=== PATIENT | male | born 1970 | race Caucasian/White ===

== ENCOUNTER → 2016-12-23 | Outpatient (CLI) | payer MEDICARE, BC | END | disposition home or self-care (01) | LOC: LABWHC1 14:13 | PROVIDERS: ATTEND Urology | DX: E29.1 Testicular hypofunction (principal) | CPT/HCPCS: 36415; 84402; 84403 ==

== ENCOUNTER → 2017-04-01 | Outpatient (CLI) | payer MEDICARE, BC ==
[2017-04-01 14:46] LABS: CH 34.3; CHCM 36.5; HCT 47.2 % (39.0-53.0); HDW 2.82; HGB 17.1 gm/dL (13.0-17.5); MCH 34.1 pg (25.0-35.0); MCHC 36.2 g/dL (31.0-37.0); MCV 94.4 fL (80.0-100.0); Mean Platelet Volume 8.9; RDW 12.2 % (11.5-15.5); WBC 7.9 k/uL (3.8-10.6)
== END | disposition home or self-care (01) ==
LOC: LABWHC1 14:20
PROVIDERS: ATTEND Psychiatry & Neurology Psychiatry
DX: E03.9 Hypothyroidism, unspecified (principal)
CPT/HCPCS: 36415; 84439; 84443; 84460; 84481; 85027

== ENCOUNTER → 2017-06-07 | Outpatient (CLI) | payer MEDICARE, BC | END | disposition home or self-care (01) | LOC: LABWHC1 15:57 | PROVIDERS: ATTEND Urology | DX: E29.1 Testicular hypofunction (principal) | CPT/HCPCS: 36415; 84402; 84403 ==

== ENCOUNTER → 2017-06-29 | Outpatient (CLI) | payer MEDICARE, BC ==
--- NOTE | 2017-06-29 15:15 | PN ---
PROGRESS NOTE Aubrey is 47, diagnosed having severe LUCY with an AHI of 63, worse in a supine body position. He has also COPD, moderate to severe with an AHI of 64% of predicted. Other comorbid conditions include hypothyroidism, ADD and chronic back pain. The patient underwent a CPAP titration during which he was titrated to a CPAP pressure of 15 cm of water. I am seeing this patient in a followup. He is not fully compliant with CPAP therapy over the past 1 week. He has tried to use it; however, he is reporting difficulty with anxiety and difficulties in exhalation. He is using an AirFit F20 touch full-face mask. It seems that the patient has been having difficulties with exhalation and this probably is related to his underlying COPD. Note that he had did very well during the CPAP titration that was done here in the [facility]. He is requesting his pressure to be lowered. He is also requesting an alternative mask to be offered to him today. BP is 121/76, pulse 64, respirations 16, temperature 98.0, weight is 305, saturation 95% on room air. GENERAL APPEARANCE: Calm, comfortable. HEENT: Short neck, crowding posterior pharynx. There is no goiter or neck mass. LUNGS: Diminished breath sounds; otherwise clear. Heart sounds are regular rate and rhythm. Normal S1, S2. No S3, S4. No murmurs. Abdomen is soft, nontender. EXTREMITIES: No edema. No cyanosis or clubbing. IMPRESSION: 1. Severe symptomatic obstructive sleep apnea, apnea-hypopnea index of 63, worse in a supine body position, having difficulty in tolerating CPAP either due to high pressures or increased anxiety or a combination of both. 2. Chronic obstructive pulmonary disease, FEV1 of 64% of predicted. 3. Obesity. 4. Hypothyroidism. 5. Attention deficit disorder. 6. Chronic back pain. PLAN: 1. Change this patient to an automatic CPAP mode. I adjusted the CPAP pressures to include a minimum pressure of 4 and maximum pressure of 10 in an auto mode. 2. Will try to continue using AirFit F20 touch full-face mask. If this fails, the patient will be switched Dreamwear nose pillow. A prescription for the second mask was given to him. 3. The patient will be seen in a brief followup in 2 weeks' time to make any further adjustments if needed. He may need to wear, even when he is awake to get more accustomed to the treatment and as he becomes more comfortable, the pressure may be modified. I am seeing him back in 2 weeks' time in followup. Encourage weight loss. Implement good sleep hygiene measures. Will follow. LISSY / ERIN: [id number] /
== END ==
LOC: SLEEP 13:04
PROVIDERS: ATTEND Internal Medicine Critical Care Medicine
DX: G47.33 Obstructive sleep apnea (adult) (pediatric) (principal); J44.9 Chronic obstructive pulmonary disease, unspecified; E03.9 Hypothyroidism, unspecified; E66.9 Obesity, unspecified; F98.8 Other specified behavioral and emotional disorders with onset usually occurring in childhood and adolescence; M54.9 Dorsalgia, unspecified; G89.29 Other chronic pain

== ENCOUNTER → 2017-08-03 | Outpatient (CLI) | payer MEDICARE, BC ==
--- NOTE | 2017-08-03 16:52 | XR ---
EXAMINATION TYPE: XR chest 2V DATE OF EXAM: 08/03/2017 COMPARISON: 08/19/2015 HISTORY: 47-year-old male COPD TECHNIQUE: Frontal and lateral views FINDINGS: Heart is upper limits of normal in size. Aorta and pulmonary vasculature within normal limits. No con solidation or pleural effusion. IMPRESSION: No acute cardiopulmonary process.
== END ==
LOC: RADXRMAIN 15:37
PROVIDERS: ATTEND Psychiatry & Neurology Psychiatry
DX: J44.9 Chronic obstructive pulmonary disease, unspecified (principal); I50.9 Heart failure, unspecified
CPT/HCPCS: 71020

== ENCOUNTER → 2017-08-09 | Outpatient (CLI) | payer MEDICARE, BC ==
[2017-08-09 16:37] LABS: CH 33.8; CHCM 34.7; HCT 47.7 % (39.0-53.0); HDW 2.66; HGB 16.3 gm/dL (13.0-17.5); MCH 33.5 pg (25.0-35.0); MCHC 34.2 g/dL (31.0-37.0); Mean Platelet Volume 9.5; RBC 4.87 m/uL (4.30-5.90); RDW 14.1 % (11.5-15.5); WBC 9.1 k/uL (3.8-10.6)
[2017-08-09 16:51] LABS: Bilirubin, Delta 0.2 mg/dL (0.0-0.2); Total Protein 7.8 g/dL (6.3-8.2)
[2017-08-09 17:22] LABS: Prostate Specific Antigen 0.36 ng/mL (0.00-4.00)
== END | disposition home or self-care (01) ==
LOC: LABWHC1 15:44
PROVIDERS: ATTEND Urology
DX: E66.9 Obesity, unspecified (principal); R35.1 Nocturia; E29.1 Testicular hypofunction
CPT/HCPCS: 36415; 80061; 80076; 80175; 84153; 84402; 84403; 85027

== ENCOUNTER → 2017-11-26 | Outpatient (CLI) | payer MEDICARE, BC | END | disposition home or self-care (01) | LOC: LABWHC1 14:29 | PROVIDERS: ATTEND Dermatology Dermatopathology | DX: L40.0 Psoriasis vulgaris (principal); Z11.1 Encounter for screening for respiratory tuberculosis; Z79.899 Other long term (current) drug therapy | CPT/HCPCS: 36415; 86480 ==

== ENCOUNTER → 2018-01-11 | Outpatient (CLI) | payer MEDICARE, BC ==
[2018-01-11 16:14] LABS: HCT 46.8 % (39.0-53.0); HGB 16.2 gm/dL (13.0-17.5); MCH 32.4 pg (25.0-35.0); MCHC 34.6 g/dL (31.0-37.0); MCV 93.9 fL (80.0-100.0); Mean Platelet Volume 9.1; Platelet Count 119 k/uL (150-450); RBC 4.99 m/uL (4.30-5.90); RDW 13.1 % (11.5-15.5); WBC 9.2 k/uL (3.8-10.6)
[2018-01-11 22:49] LABS: Hemoglobin A1C 5.6 % (4.0-6.0)
== END | disposition home or self-care (01) ==
LOC: LABWHC1 15:20
PROVIDERS: ATTEND Psychiatry & Neurology Psychiatry
DX: E11.9 Type 2 diabetes mellitus without complications (principal); E29.1 Testicular hypofunction
CPT/HCPCS: 36415; 83036; 84402; 84403; 85027

== ENCOUNTER → 2018-06-24 | Outpatient (CLI) | payer MEDICARE, BC ==
[2018-06-24 16:29] LABS: HGB 17.4 gm/dL (13.0-17.5); MCH 33.2 pg (25.0-35.0); MCHC 34.7 g/dL (31.0-37.0); MCV 95.5 fL (80.0-100.0); Mean Platelet Volume 8.5; Platelet Count 100 k/uL (150-450); RBC 5.24 m/uL (4.30-5.90); RDW 12.5 % (11.5-15.5); WBC 7.3 k/uL (3.8-10.6)
[2018-06-24 16:35] LABS: ALT 53 U/L (21-72); AST 43 U/L (17-59); Albumin 4.3 g/dL (3.5-5.0); Alkaline Phosphatase 131 U/L (38-126); Anion Gap 9 mmol/L; Blood Urea Nitrogen 11 mg/dL (9-20); Carbon Dioxide 27 mmol/L (22-30); Chloride 104 mmol/L (98-107); Cholesterol 162 mg/dL (<200); Glucose 106 mg/dL (74-99); HDL Cholesterol 55 mg/dL (40-60); LDL Cholesterol,Calculated 76 mg/dL (0-99); Potassium 4.5 mmol/L (3.5-5.1); Sodium 140 mmol/L (137-145); Total Protein 7.8 g/dL (6.3-8.2); Triglycerides 153 mg/dL (<150)
[2018-06-24 16:51] LABS: T4, Free (Free Thyroxine) 1.92 ng/dL (0.78-2.19)
== END ==
LOC: LABWHC1 16:02
PROVIDERS: ATTEND Psychiatry & Neurology Psychiatry
DX: E03.9 Hypothyroidism, unspecified (principal); F31.60 Bipolar disorder, current episode mixed, unspecified; E29.1 Testicular hypofunction; Z79.899 Other long term (current) drug therapy
CPT/HCPCS: 36415; 80053; 80061; 84402; 84403; 84439; 84443; 85027

== ENCOUNTER → 2018-08-05 | Outpatient (CLI) | payer MEDICARE, BC | END | disposition home or self-care (01) | LOC: LABWHC1 12:22 | PROVIDERS: ATTEND Urology | DX: N13.30 Unspecified hydronephrosis (principal) | CPT/HCPCS: 36415; 84402; 84403 ==

== ENCOUNTER → 2018-12-27 | Outpatient (CLI) | payer MEDICARE, BC | END | disposition home or self-care (01) | LOC: LABWHC1 17:10 | PROVIDERS: ATTEND Dermatology Dermatopathology | DX: L40.0 Psoriasis vulgaris (principal); Z11.1 Encounter for screening for respiratory tuberculosis; Z79.899 Other long term (current) drug therapy | CPT/HCPCS: 36415 ==

== ENCOUNTER → 2019-04-27 | Outpatient (CLI) | payer MEDICARE, BC ==
[2019-04-27 15:43] LABS: HGB 17.2 gm/dL (13.0-17.5); MCH 32.8 pg (25.0-35.0); MCHC 34.3 g/dL (31.0-37.0); MCV 95.6 fL (80.0-100.0); Mean Platelet Volume 8.9; Platelet Count 107 k/uL (150-450); RBC 5.23 m/uL (4.30-5.90); RDW 12.3 % (11.5-15.5); WBC 7.4 k/uL (3.8-10.6)
[2019-04-27 23:44] LABS: T4, Free (Free Thyroxine) 1.6 ng/dL (0.80-1.80)
== END | disposition home or self-care (01) ==
LOC: LABWHC1 14:40
PROVIDERS: ATTEND Psychiatry & Neurology Psychiatry
DX: E29.1 Testicular hypofunction (principal); E03.9 Hypothyroidism, unspecified; E21.3 Hyperparathyroidism, unspecified
CPT/HCPCS: 36415; 83970; 84153; 84402; 84403; 84439; 84443; 84450; 84460; 85027

== ENCOUNTER → 2019-08-28 | Outpatient (CLI) | payer MEDICARE, BC ==
[2019-08-28 16:51] LABS: HCT 50.3 % (39.0-53.0); HGB 17.9 gm/dL (13.0-17.5); MCH 34.1 pg (25.0-35.0); MCHC 35.6 g/dL (31.0-37.0); MCV 95.6 fL (80.0-100.0); Mean Platelet Volume 9.5; Platelet Count 120 k/uL (150-450); RBC 5.26 m/uL (4.30-5.90); RDW 11.8 % (11.5-15.5); WBC 11.3 k/uL (3.8-10.6)
[2019-08-29 00:52] LABS: Albumin 4.4 g/dL (3.80-4.90); Albumin/Globulin Ratio 2.2 (1.60-3.17); Anion Gap 7.8 mmol/L (4.00-12.00); Calcium 9.8 mg/dL (8.7-10.3); Carbon Dioxide 29.2 mmol/L (21.6-31.8); Chol/HDL Ratio 3.86; Potassium 4.8 mmol/L (3.5-5.5); Total Bilirubin 0.8 mg/dL (0.3-1.2); Total Protein 6.4 g/dL (6.2-8.2)
[2019-08-29 00:57] LABS: T4, Free (Free Thyroxine) 1.7 ng/dL (0.80-1.80)
[2019-08-29 05:53] LABS: Estimated Average Glucose 99.67; Hemoglobin A1C 5.1 % (4.0-6.0)
== END | disposition home or self-care (01) ==
LOC: LABWHC1 16:01
PROVIDERS: ATTEND Internal Medicine
DX: E03.9 Hypothyroidism, unspecified (principal); E29.1 Testicular hypofunction; E55.9 Vitamin D deficiency, unspecified
CPT/HCPCS: 36415; 80053; 80061; 82306; 83036; 83721; 84402; 84403; 84439; 84443; 85027

== ENCOUNTER → 2020-03-12 | Outpatient (CLI) | payer MEDICARE, BC | END | disposition home or self-care (01) | LOC: LABWHC1 14:03 | PROVIDERS: ATTEND Dermatology Dermatopathology | DX: L40.0 Psoriasis vulgaris (principal); Z79.899 Other long term (current) drug therapy | CPT/HCPCS: 36415; 86480 ==

== ENCOUNTER → 2020-05-20 | Outpatient (CLI) | payer MEDICARE, BC ==
[2020-05-20 14:56] LABS: MCH 33.7 pg (25.0-35.0); MCHC 34.2 g/dL (31.0-37.0); MCV 98.6 fL (80.0-100.0); Mean Platelet Volume 9.1; Platelet Count 103 k/uL (150-450); RBC 5.96 m/uL (4.30-5.90); RDW 12.8 % (11.5-15.5)
[2020-05-20 19:57] LABS: T4, Free (Free Thyroxine) 1.1 ng/dL (0.80-1.80)
[2020-05-20 20:13] LABS: African American GFR (CKD) 81.2 (60.0-200.0); Albumin 4.6 g/dL (3.80-4.90); Albumin/Globulin Ratio 1.77 (1.60-3.17); Anion Gap 3.5 mmol/L (4.00-12.00); BUN/Creat Ratio 14.17 Ratio (12.00-20.00); Bilirubin, Conjugated 0.3 mg/dL (0.20-0.40); Calcium 9.4 mg/dL (8.7-10.3); Carbon Dioxide 36.5 mmol/L (21.6-31.8); Chol/HDL Ratio 4.42; Globulin 2.6 g/dL (1.6-3.3); LDL Cholesterol,Calculated 75.4 mg/dL (0.0-131.0); Non-African American GFR(CKD) 70.1 (60.0-200.0); Potassium 4.9 mmol/L (3.5-5.5); Total Bilirubin 1.3 mg/dL (0.2-1.2); Total Protein 7.2 g/dL (6.2-8.2); VLDL Calculation 78.6 mg/dL (5.00-40.00)
[2020-05-20 23:33] LABS: Hemoglobin A1C 6.7 % (4.0-6.0)
[2020-05-21 10:15] LABS: HGB 20.1 gm/dL (13.0-17.5)
[2020-05-21 10:16] LABS: HCT 58.8 % (39.0-53.0)
== END | disposition home or self-care (01) ==
LOC: LABWHC1 14:33
PROVIDERS: ATTEND Psychiatry & Neurology Psychiatry
DX: E03.9 Hypothyroidism, unspecified (principal); F31.60 Bipolar disorder, current episode mixed, unspecified; Z79.899 Other long term (current) drug therapy
CPT/HCPCS: 36415; 80053; 80061; 82248; 83036; 84439; 84443; 85027

== ENCOUNTER → 2021-03-26 | Outpatient (CLI) | payer MEDICARE, BC ==
[2021-03-27 01:27] LABS: HCT 50.8 % (39.6-50.0); HGB 15.9 g/dL (13.0-17.0); MCH 28.3 pg (27.0-32.0); MCHC 31.3 g/dL (32.0-37.0); MCV 90.6 fL (80.0-97.0); Mean Platelet Volume 12.5 fL (9.5-12.2); Platelet Count 122 X 10*3/uL (140-440); RBC 5.61 X 10*6/uL (4.40-5.60); RDW 15.2 % (11.5-14.5); WBC 7.65 X 10*3/uL (4.50-10.00)
[2021-03-27 03:46] LABS: Hemoglobin A1C 6.9 % (4.0-6.0)
[2021-03-27 06:07] LABS: T4, Free (Free Thyroxine) 1.8 ng/dL (0.80-1.80)
[2021-03-27 06:30] LABS: African American GFR (CKD) 100.6 (60.0-200.0); Albumin 4.4 g/dL (3.80-4.90); Albumin/Globulin Ratio 1.76 (1.60-3.17); Anion Gap 10.9 mmol/L (4.00-12.00); Calcium 9.8 mg/dL (8.7-10.3); Carbon Dioxide 28.1 mmol/L (21.6-31.8); Chol/HDL Ratio 6.43; Globulin 2.5 g/dL (1.6-3.3); Non-African American GFR(CKD) 86.8 (60.0-200.0); Potassium 4.7 mmol/L (3.5-5.5); Total Bilirubin 0.6 mg/dL (0.3-1.2); Total Protein 6.9 g/dL (6.2-8.2)
== END | disposition home or self-care (01) ==
LOC: LABWHC1 15:14
PROVIDERS: ATTEND Psychiatry & Neurology Psychiatry
DX: F31.60 Bipolar disorder, current episode mixed, unspecified (principal); E03.9 Hypothyroidism, unspecified; E11.9 Type 2 diabetes mellitus without complications; Z79.899 Other long term (current) drug therapy
CPT/HCPCS: 36415; 80053; 80061; 83036; 83721; 84439; 84443; 85027

== ENCOUNTER → 2021-03-26 | Outpatient (CLI) | payer MEDICARE, BC | END | disposition home or self-care (01) | LOC: LABWHC1 15:17 | PROVIDERS: ATTEND Dermatology Dermatopathology | DX: L40.0 Psoriasis vulgaris (principal); Z79.899 Other long term (current) drug therapy | CPT/HCPCS: 36415; 86480 ==

== ENCOUNTER → 2021-06-19 | Outpatient (CLI) | payer MEDICARE, BC ==
[2021-06-19 17:01] LABS: HCT 53.2 % (39.6-50.0); HGB 16.1 g/dL (13.0-17.0); MCH 26.8 pg (27.0-32.0); MCHC 30.3 g/dL (32.0-37.0); MCV 88.7 fL (80.0-97.0); Mean Platelet Volume 11.4 fL (9.5-12.2); Platelet Count 132 X 10*3/uL (140-440); RDW 14.6 % (11.5-14.5); WBC 7.94 X 10*3/uL (4.50-10.00)
[2021-06-20 00:39] LABS: African American GFR (CKD) 99.4 (60.0-200.0); Albumin 4.6 g/dL (3.8-4.9); Albumin/Globulin Ratio 1.79 (1.60-3.17); Anion Gap 12.2 mmol/L (4.00-12.00); BUN/Creat Ratio 18.02 Ratio (12.00-20.00); Blood Urea Nitrogen 18.2 mg/dL (9.0-27.0); Calcium 9.2 mg/dL (8.7-10.3); Carbon Dioxide 24.9 mmol/L (21.6-31.8); Chol/HDL Ratio 3.74 Ratio; Globulin 2.6 g/dL (1.6-3.3); HDL Cholesterol 39.6 mg/dL (40.00-60.00); LDL Cholesterol,Calculated 52.2 mg/dL (0.0-131.0); Non-African American GFR(CKD) 85.7 (60.0-200.0); Potassium 4.4 mmol/L (3.5-5.5); T4, Free (Free Thyroxine) 1.26 ng/dL (0.800-1.800); Total Bilirubin 0.7 mg/dL (0.30-1.20); Total Protein 7.2 g/dL (6.2-8.2); VLDL Calculation 56.2 mg/dL (5.00-40.00)
== END | disposition home or self-care (01) ==
LOC: LABWHC1 08:48
PROVIDERS: ATTEND Psychiatry & Neurology Psychiatry
DX: E11.9 Type 2 diabetes mellitus without complications (principal); E78.5 Hyperlipidemia, unspecified; F31.60 Bipolar disorder, current episode mixed, unspecified
CPT/HCPCS: 36415; 80053; 80061; 83036; 84439; 84443; 85027

== ENCOUNTER → 2021-10-24 | Outpatient (CLI) | payer MEDICARE, BC ==
--- NOTE | 2021-10-25 06:23 | XR ---
EXAMINATION TYPE: XR tibia fibula RT DATE OF EXAM: 10/24/2021 CLINICAL HISTORY: Pain after striking injury. TECHNIQUE: Two views of the right leg are obtained. COMPARISON: None. FINDINGS: There is concentric cortical thickening mid to distal diaphysis level of the right tibia orellana ggesting healed fracture, correlate clinically. No acute fracture or dislocation of the tibia or fib bernard is present. Mild to moderate narrowing and spurring right knee joint and patellofemoral compartme nt. With small superior and inferior calcaneal spurs are present. The overlying soft tissue appears u nremarkable. IMPRESSION: As above.
== END | disposition home or self-care (01) ==
LOC: RADXRMAIN 16:58
PROVIDERS: ATTEND Family Medicine
DX: M17.11 Unilateral primary osteoarthritis, right knee (principal); M77.31 Calcaneal spur, right foot

== ENCOUNTER → 2022-08-06 | Outpatient (CLI) | payer MEDICARE, BC | END | disposition home or self-care (01) | LOC: LABWHC1 13:34 | PROVIDERS: ATTEND Physician Assistant | DX: L40.0 Psoriasis vulgaris (principal); Z79.899 Other long term (current) drug therapy | CPT/HCPCS: 36415; 86480 ==